=== PATIENT | female | born 1985 | race Caucasian/White ===

== ENCOUNTER → 2020-04-06 | Outpatient (CLI) | payer OTHER | END | disposition home or self-care (01) | LOC: STAR 14:53 | PROVIDERS: ATTEND Obstetrics & Gynecology | DX: Z01.812 Encounter for preprocedural laboratory examination (principal); Z20.828 Contact with and (suspected) exposure to other viral communicable diseases | CPT/HCPCS: 36415; 87635 ==

== ENCOUNTER 2020-04-07 09:12 | Inpatient (IN) | payer OTHER ==
[~2020-04-07] VITALS: Ht 170.2 cm; Wt 86.4 kg
[2020-04-15] MEDS ORDERED: NEWBORN KIT ONE ×2 (05:27→06:38)
[2020-04-15] MEDS ORDERED: FENTANYL PF 100 MCG/2ML IV PRN (05:30)
[2020-04-15] MEDS ORDERED: OXYTOCIN 30U/ 0.9% NaCL 500ML 500 ML IV PRN (05:30)
[2020-04-15] MEDS ORDERED: METOCLOPRAMIDE 5 MG/ML, 2ML IVPush PRN (05:30)
[2020-04-15] MEDS ORDERED: TERBUTALINE 1 MG/ML, 1ML IVPush PRN (05:30)
[2020-04-15] MEDS ORDERED: ONDANSETRON 2MG/ML, 2ML IVPush PRN (05:30)
[2020-04-15] MEDS ORDERED: LACTATED RINGERS 1,000 ML IV SCH (05:30)
[2020-04-15] MEDS ORDERED: FENTANYL PF 100 MCG/2ML IVPush PRN (05:30)
[2020-04-15] MEDS ORDERED: CALCIUM CARBONATE 500 MG TAB.CHEW PO PRN (05:30)
[2020-04-15] MEDS ORDERED: D5%-LACTATED RINGERS 1,000 ML IV SCH (05:30)
[2020-04-15] MEDS ORDERED: SODIUM CITRATE/CITRIC ACID 30 ML UDC PO PRN (05:30)
[2020-04-15] MEDS ORDERED: TERBUTALINE 1 MG/ML, 1ML SQ PRN (05:30)
[2020-04-15 06:01] LABS: BASOPHILS % (AUTO) 0 % (0-1); EOSINOPHILS % (AUTO) 1 % (1-7); LYMPHOCYTES % (AUTO) 23 % (22-44); MEAN CORPUSCULAR HEMOGLOBIN 32.7 pg (27.0-34.8); MEAN CORPUSCULAR HGB CONC 32.7 g/dL (32.4-35.8); MEAN PLATELET VOLUME 11.7 fL (7.4-10.4); MONOCYTES % (AUTO) 6 % (2-9); NEUTROPHILS % (AUTO) 70 % (42-75); PLATELET COUNT 148 x10^3/uL (130-400); RED BLOOD COUNT 3.51 x10^6/uL (3.82-5.3); RED CELL DISTRIBUTION WIDTH 12.9 % (9.6-15.2)
[2020-04-15] MEDS ORDERED: OXYTOCIN 30U/ 0.9% NaCL 500ML 500 ML ONE (06:06)
[2020-04-15] MEDS ORDERED: LIDOCAINE 1%, 20ML ONE (06:06)
[2020-04-15] MEDS ORDERED: MISOPROSTOL 200 MCG TABLET ONE (06:06)
[2020-04-15 07:24] LABS: MD SCAN
[2020-04-15] MEDS ORDERED: MAGNESIUM HYDROXIDE 8%, 30ML UDC PO PRN (13:00)
[2020-04-15] MEDS ORDERED: OXYTOCIN 30U/ 0.9% NaCL 500ML 500 ML IV SCH (13:00)
[2020-04-15] MEDS ORDERED: ACETAMINOPHEN 325 MG TABLET PO PRN ×2 (13:00)
[2020-04-15] MEDS ORDERED: IBUPROFEN 600 MG TABLET PO PRN (13:00)
[2020-04-15] MEDS ORDERED: RHOGAM FROM BLOOD BANK 1 NOTE EA IM/IV ONE (13:00)
[2020-04-15] MEDS ORDERED: DOCUSATE 100 MG CAPSULE PO PRN (13:00)
[2020-04-15] MEDS ORDERED: MISOPROSTOL 200 MCG TABLET PR PRN (13:00)
[2020-04-15] MEDS ORDERED: MEASLES,MUMPS&RUBELLA VACC/PF 0.5 ML SQ-VACC PRN (13:00)
[2020-04-15] MEDS ORDERED: HYDROcodone/APAP 5/325 TABLET PO PRN ×2 (13:00)
[2020-04-15 15:20] VITALS: BP 133/73
[2020-04-15 20:00] VITALS: BP 137/81
[2020-04-15 21:15] LABS: BASOPHILS % (AUTO) 0 % (0-1); EOSINOPHILS % (AUTO) 0 % (1-7); LYMPHOCYTES % (AUTO) 12 % (22-44); MEAN CORPUSCULAR HEMOGLOBIN 32.5 pg (27.0-34.8); MEAN CORPUSCULAR HGB CONC 32.7 g/dL (32.4-35.8); MEAN PLATELET VOLUME 11.7 fL (7.4-10.4); MONOCYTES % (AUTO) 5 % (2-9); NEUTROPHILS % (AUTO) 83 % (42-75); PLATELET COUNT 153 x10^3/uL (130-400); RED BLOOD COUNT 3.54 x10^6/uL (3.82-5.3); RED CELL DISTRIBUTION WIDTH 12.8 % (9.6-15.2)
[2020-04-15 21:36] LABS: MD SCAN
[2020-04-16] VITALS: BP 128/74
[2020-04-16 04:00] VITALS: BP 123/73
[2020-04-16 09:45] VITALS: BP 134/77
[2020-04-16 20:00] VITALS: BP 133/77
[2020-04-17 08:06] VITALS: BP 120/71
[2020-04-17] MEDS: PRENATAL VIT/IRON/FA 1 EACH TABLET PO SCH ×2 (08:26→09:00)
[2020-04-17] MEDS ORDERED: IBUP-1222 PO (11:07)
== END 2020-04-17 13:07 | disposition home or self-care (01) | DRG 807 ==
LOC: LDIP 04-15 05:00 → 2NW 04-15 14:37
PROVIDERS: ADMIT Obstetrics & Gynecology; ATTEND Obstetrics & Gynecology
PROC: 10E0XZZ Delivery of Products of Conception, External Approach (ICD-10-PCS; principal; 2020-04-15)
PROC: 3E0234Z Introduction of Serum, Toxoid and Vaccine into Muscle, Percutaneous Approach (ICD-10-PCS; 2020-04-15)
PROC: 10907ZC Drainage of Amniotic Fluid, Therapeutic from Products of Conception, Via Natural or Artificial Opening (ICD-10-PCS; 2020-04-15)
PROC: 0HQ9XZZ Repair Perineum Skin, External Approach (ICD-10-PCS; 2020-04-15)
DX: O48.0 Post-term pregnancy (principal); Z37.0 Single live birth; Z3A.41 41 weeks gestation of pregnancy; O70.0 First degree perineal laceration during delivery; O69.81X0 Labor and delivery complicated by cord around neck, without compression, not applicable or unspecified
CPT/HCPCS: 36415; 85025; 85461; 86592; 86850; 86900; G0378; J2790; J2590; J7120

== ENCOUNTER 2020-04-14 15:06 | Outpatient (CLI) | payer OTHER ==
[~2020-04-14] VITALS: Ht 170.2 cm; Wt 86.4 kg
[2020-04-14 15:34] VITALS: BP 132/80
== END 2020-04-14 19:10 | disposition home or self-care (01) ==
LOC: LDOP 15:06
PROVIDERS: ATTEND Obstetrics & Gynecology
DX: O09.93 Supervision of high risk pregnancy, unspecified, third trimester (principal); O26.893 Other specified pregnancy related conditions, third trimester; R10.9 Unspecified abdominal pain; Z3A.41 41 weeks gestation of pregnancy
CPT/HCPCS: 59025